=== PATIENT | male | born 1965 | race Caucasian/White ===

== ENCOUNTER 2017-01-10 07:40 | Day surgery (SDC) | payer BC ==
[~2017-01-10] VITALS: Ht 180.3 cm; Wt 108.3 kg
[~2017-01-10 07:40] MED LIST: ASPI-110 PO; DILT-64 PO; MULTCAP14 PO; TUMS500C CHEW; VITA500C3 CHEW
[2017-01-10] MEDS ORDERED: INSULIN HUMAN REGULAR 1,000 UNITS/10 ML VIAL SQ PRN (08:15)
[2017-01-10] MEDS ORDERED: LACTATED RINGER'S 1000 ML IV PRN (08:15)
[2017-01-10] MEDS ORDERED: METOPROLOL TARTRATE 25 MG TAB PO PRN (08:15)
[2017-01-10] MEDS ORDERED: SODIUM CHLORID 0.9% 500 ML IV PRN (08:15)
[2017-01-10] MEDS ORDERED: POVIDONE IODINE 5% (ANTISEPSIS KIT) 4 APPLICATIONS EACH NARE PRN (08:15)
[2017-01-10] MEDS ORDERED: CHLORHEXIDINE GLUCONATE 2 % 1 PACK (2 CLOTHS) TOPICAL PRN (08:15)
[2017-01-10 08:48] VITALS: BP 102/72; PULSE 85; RESP 20; TEMP 98.9; O2SAT 97
[2017-01-10] MEDS ORDERED: BUPIVACAINE/EPINEPHRINE 0.5% 50 ML VIAL ONE (09:15)
[2017-01-10 09:27] LABS: ALT (GPT) 29 U/L (12-78); ANION GAP 8 MEQ/L (5-15); AST (GOT) 17 U/L (15-37); BICARBONATE 23.6 MEQ/L (21.0-32.0); BLOOD UREA NITROGEN 18 MG/DL (7-18); CHLORIDE 109 MEQ/L (98-107); GLOMERULAR FILTRATION RATE 68 ML/MIN (>89); SODIUM (NA) 141 MEQ/L (136-145)
[2017-01-10 09:30] LABS: ALKALINE PHOSPHATASE 65 U/L (45-117); TOTAL BILIRUBIN ADULT 0.3 MG/DL (0.2-1.0)
[2017-01-10] MEDS ORDERED: Post-op Orders (for Pharmacy) MISC XX ONE (10:15)
[2017-01-10] MEDS ORDERED: SODIUM CHLORIDE 0.9% FLUSH 10 ML FLUSH IV FLUSH PRN (10:15)
[2017-01-10] MEDS ORDERED: NALOXONE HCL 0.4 MG/ML AMP IV PRN (10:15)
[2017-01-10] MEDS ORDERED: PANTOPRAZOLE SOD 40 MG DELAYED RELEASE TAB PO SCH (10:15)
[2017-01-10] MEDS ORDERED: ONDANSETRON HCL 4 MG/2 ML VIAL IV PRN (10:15)
[2017-01-10] MEDS ORDERED: DILTIAZEM-CD 180 MG CAP ER PO SCH ×2 (11:00→12:00)
--- NOTE | 2017-01-10 11:22 | MH ---
cc: TREVOR SARAVIA MD DATE OF ADMISSION 01/10/2017 ADMITTING PHYSICIAN Trevor Saravia MD ADMISSION DIAGNOSIS Acute calculous cholecystitis, chronic calculous cholecystitis/cholelithiasis, uncontrolled atrial fibrillation. HISTORY OF PRESENT DISEASE This 51-year-old male was referred to me from another physician and was diagnosed in [place] with biliary colic, episode of acute cholecystitis. Workup revealed a large 2.5 cm stone lodged in the neck of the gallbladder. The patient recovered from this and underwent workup and has now scheduled a laparoscopic cholecystectomy. In the preop area, the patient is noted to have uncontrolled atrial fibrillation with heart rate about 110 and therefore surgery was cancelled until this was worked up. The patient states that he goes in and out of atrial fibrillation. He has seen a manager documentation in 2005 and was placed on Cardizem, but does not take it regularly. He does not know if he was ever on any anticoagulants, but does not take any now anyway. PAST MEDICAL HISTORY Atrial fibrillation off and on, the patient is not very good historian and is fairly noncompliant with his care. PAST SURGICAL HISTORY Negative MEDICATIONS 1. Cardizem 240 daily 2. Aspirin SOCIAL HISTORY Patient is a social drinker. PHYSICAL EXAM This is a 51-year-old male, somewhat overweight. HEAD, EYES, EARS, NOSE, AND THROAT: Normocephalic. No trauma to the head. Pupils equally reactive. Extraocular muscles intact. NECK: Supple. Bilateral carotid pulses. No bruits. CHEST: Clear bilateral breath sounds. HEART: Irregular rhythm between 90-110 a minute, atrial fibrillation. The patient appears to be slightly pale. ABDOMEN: Soft. Active bowel sounds. No rebound or guarding. No masses. No scars. EXTREMITIES: Grossly within normal limits with good proximal and distal pulses. No signs of vascular deficit. BACK: Normal. NEUROLOGIC: The patient is fully intact. IMPRESSION A 51-year-old male scheduled for elective laparoscopic cholecystectomy. Nonetheless now has uncontrolled atrial fibrillation. I am not sure if the patient is going in out of A. fib, has not been worked up. The patient cannot go to the OR like this. He is going to be admitted now, worked up by cardiology and we will go from there. The other option is to discharge the patient and have this done on an outpatient basis. Either way, the patient's surgery has been postponed for clearly medical reasons. Trevor CHAMPION /11:00 AM /11:11 AM
--- NOTE | 2017-01-10 12:41 | PD.CAR.PN ---
CVT Progress Note Subjective/Hospital Course: Patient wishes to complete the workup as an outpatient Will DC today Objective: Vital Signs Date Time Temp Pulse Resp B/P Pulse Ox O2 Delivery O2 Flow Rate FiO2 01/10/17 08:48 98.9 85 20 102/72 97 Labs: Laboratory Tests Test 01/10/17 08:45 Sodium Level 141 MEQ/L (136-145) Potassium Level 4.0 MEQ/L (3.5-5.1) Chloride Level 109 MEQ/L (98-107) Carbon Dioxide Level 23.6 MEQ/L (21.0-32.0) Anion Gap 8 MEQ/L (5-15) Blood Urea Nitrogen 18 MG/DL (7-18) Creatinine 1.14 MG/DL (0.60-1.30) Estimat Glomerular Filtration 68 ML/MIN (>89) Rate Random Glucose 111 MG/DL (74-106) Calcium Level 8.6 MG/DL (8.5-10.1) Total Bilirubin 0.3 MG/DL (0.2-1.0) Aspartate Amino Transf 17 U/L (15-37) (AST/SGOT) Alanine Aminotransferase 29 U/L (12-78) (ALT/SGPT) Alkaline Phosphatase 65 U/L (45-117) Total Protein 7.4 GM/DL (6.4-8.2) Albumin 3.7 GM/DL (3.4-5.0) Result Diagram: 01/10/17 0845 Trevor Blake MD January 10, 2017 12:41
--- NOTE | 2017-01-10 13:46 | EKG ---
Date Performed: 01/10/2017 Time Performed: 08:14:19 PTAGE: 51 years EKG: ATRIAL FIBRILLATION POSSIBLE INFERIOR MYOCARDIAL INFARCTION , PROBABLY OLD ABNORMAL RHYTHM ECG NO PREVIOUS TRACING DOCTOR: Tristen Yañez Interpretating Date/Time 01/10/2017 13:42:50
[2017-01-10] MEDS ORDERED: SODIUM CHLORIDE 0.9% FLUSH 10 ML FLUSH IV FLUSH SCH (21:00)
[2017-02-14] MEDS ORDERED: NALOXONE HCL 0.4 MG/ML AMP IV PRN (14:45)
[2017-02-14] MEDS ORDERED: oxyCODONE/ACETAMINOPHEN 5 MG/325 MG TAB PO PRN (14:45)
[2017-02-14] MEDS ORDERED: Post-op Orders (for Pharmacy) MISC XX ONE (14:45)
[2017-02-14] MEDS ORDERED: DILTIAZEM-CD 240 MG CAP ER PO SCH (14:45)
[2017-02-14] MEDS ORDERED: MORPHINE SULFATE 4 MG/ML INJ IV PRN (14:45)
[2017-02-14] MEDS ORDERED: SODIUM CHLORIDE 0.9% FLUSH 10 ML FLUSH IV FLUSH PRN (14:45)
[2017-02-14] MEDS ORDERED: ONDANSETRON HCL 4 MG/2 ML VIAL IV PRN (14:45)
[2017-02-14] MEDS ORDERED: PANTOPRAZOLE SOD 40 MG DELAYED RELEASE TAB PO SCH (15:00)
[2017-02-14] MEDS ORDERED: SODIUM CHLOR 0.9% 1000 ML INJ 1,000 ML IV SCH (15:00)
[2017-02-14] MEDS ORDERED: SODIUM CHLORIDE 0.9% FLUSH 10 ML FLUSH IV FLUSH SCH (21:00)
== END 2017-01-10 12:43 | disposition home or self-care (01) ==
LOC: HSDC 07:40 → UNDOADMIN 10:07 → HSDI 10:07 → UNDODISIN 12:43 → HSDC 12:43
PROVIDERS: ATTEND Surgery
DX: K81.0 Acute cholecystitis (principal); Z53.09 Procedure and treatment not carried out because of other contraindication; I48.91 Unspecified atrial fibrillation
CPT/HCPCS: 80053; 93005; 99211; G0463

== ENCOUNTER 2017-02-14 08:27 | Observation (INO) | payer BC ==
[~2017-02-14] VITALS: Ht 180.3 cm; Wt 106.4 kg
[2017-02-14] MEDS ORDERED: POVIDONE IODINE 5% (ANTISEPSIS KIT) 4 APPLICATIONS EACH NARE PRN (08:45)
[2017-02-14] MEDS ORDERED: METOPROLOL TARTRATE 25 MG TAB PO PRN (08:45)
[2017-02-14] MEDS ORDERED: SODIUM CHLORID 0.9% 500 ML IV PRN (08:45)
[2017-02-14] MEDS ORDERED: CHLORHEXIDINE GLUCONATE 2 % 1 PACK (2 CLOTHS) TOPICAL PRN (08:45)
[2017-02-14] MEDS ORDERED: INSULIN HUMAN REGULAR 1,000 UNITS/10 ML VIAL SQ PRN (08:45)
[2017-02-14] MEDS ORDERED: LACTATED RINGER'S 1000 ML IV PRN (08:45)
[2017-02-14] MEDS ORDERED: BUPIVACAINE/EPINEPHRINE 0.5% PF 30 ML VIAL ONE (09:01)
[2017-02-14 09:17] VITALS: BP 114/74; PULSE 72; RESP 18; TEMP 98.7; O2SAT 94
[2017-02-14 09:50] LABS: AUTOMATED NEUTROPHIL # 4.4 TH/MM3 (1.8-7.7); BASOPHIL % 0.6 % (0.0-2.0); EOSINOPHIL # 0.2 TH/MM3 (0-0.4); HEMATOCRIT 41.4 % (39.0-51.0); HEMO FLAGS DIFF FINAL; LYMPH % 26.9 % (9.0-44.0); LYMPHOCYTE # 1.9 TH/MM3 (1.0-4.8); MEAN CELL VOLUME 87.7 FL (80.0-100.0); MEAN CORPUSCULAR HEMOGLOBIN 29.4 PG (27.0-34.0); MEAN CORPUSCULAR HGB CONC 33.6 % (32.0-36.0); MONO % 7.4 % (0.0-8.0); NEUT % 62.1 % (16.0-70.0); PLATELET COUNT 256 TH/MM3 (150-450); RED BLOOD COUNT 4.72 MIL/MM3 (4.50-5.90); RED CELL DISTRIBUTION WIDTH 12.5 % (11.6-17.2); WHITE BLOOD COUNT 7.1 TH/MM3 (4.0-11.0)
[2017-02-14 09:53] LABS: PROTHROMBIN TIME - PATIENT 10.8 SEC (9.8-11.6)
[2017-02-14] MEDS ORDERED: ceFAZolin 2 GM PREMIX 50 ML ONE (10:00)
[2017-02-14] MEDS ORDERED: ceFAZolin INJ 1,000 MG VIAL ONE (10:00)
[2017-02-14 10:06] LABS: ALT (GPT) 128 U/L (12-78); ANION GAP 7 MEQ/L (5-15); AST (GOT) 370 U/L (15-37); BICARBONATE 25.7 MEQ/L (21.0-32.0); BLOOD UREA NITROGEN 17 MG/DL (7-18); CHLORIDE 108 MEQ/L (98-107); GLOMERULAR FILTRATION RATE 77 ML/MIN (>89); POTASSIUM 4.1 MEQ/L (3.5-5.1); SODIUM (NA) 141 MEQ/L (136-145)
[2017-02-14] MEDS ORDERED: MIDAZOLAM HCL 2 MG/2 ML VIAL ONE (10:06)
[2017-02-14] MEDS ORDERED: ACETAMINOPHEN 1000 MG/100 ML VIAL IV ONE (10:06)
[2017-02-14] MEDS ORDERED: FAMOTIDINE 20 MG/2 ML VIAL ONE (10:06)
[2017-02-14] MEDS ORDERED: fentaNYL CITRATE 250 MCG/5 ML AMP ONE (10:07)
[2017-02-14] MEDS ORDERED: SUGAMMADEX SODIUM 200 MG/2 ML VIAL IV PUSH ONE ×2 (10:07)
[2017-02-14 10:09] LABS: ALKALINE PHOSPHATASE 64 U/L (45-117); TOTAL BILIRUBIN ADULT 0.4 MG/DL (0.2-1.0)
[2017-02-14] MEDS ORDERED: ceFAZolin 2 GM PREMIX 50 ML IV ONE (11:15)
[2017-02-14] MEDS ORDERED: PROPOFOL 200 MG/20 ML AMP IV ONE (12:00)
[2017-02-14] MEDS ORDERED: NEOSTIGMINE 3 MG/3 ML SYR IV ONE (12:00)
[2017-02-14] MEDS ORDERED: ONDANSETRON HCL 4 MG/2 ML VIAL IV PUSH ONE (12:00)
[2017-02-14] MEDS ORDERED: MORPHINE SULFATE 4 MG/ML INJ ONE (13:00)
[2017-02-14] MEDS ORDERED: DO NOT ADM ANY ANTICOAGULANT DRUGS PRN (13:15)
[2017-02-14] MEDS ORDERED: *morphine SULFATE 8 MG/ML PERIprocedure ONLY ONE (13:17)
[2017-02-14] MEDS ORDERED: PERC5TAB12 PO (14:46)
[2017-02-14] MEDS ORDERED: SODIUM CHLOR 0.9% 1000 ML INJ 1,000 ML IV SCH (15:15)
[2017-02-14] MEDS ORDERED: MORPHINE SULFATE 4 MG/ML INJ IV PRN (15:15)
[2017-02-14] MEDS ORDERED: oxyCODONE/ACETAMINOPHEN 5 MG/325 MG TAB PO PRN (15:15)
[2017-02-14] MEDS ORDERED: NALOXONE HCL 0.4 MG/ML AMP IV PRN (15:15)
[2017-02-14 16:00] VITALS: BP 119/60; PULSE 65; RESP 16; TEMP 96.7; O2SAT 93
[2017-02-14] MEDS ORDERED: ONDANSETRON HCL 4 MG/2 ML VIAL IV PUSH PRN (16:00)
[2017-02-14] MEDS ORDERED: DOCUSATE SODIUM 100 MG CAP PO SCH (21:00)
[2017-02-15] MEDS ORDERED: PANTOPRAZOLE SOD 40 MG DELAYED RELEASE TAB PO SCH (09:00)
[2017-02-15] MEDS ORDERED: DILTIAZEM-CD 240 MG CAP ER PO SCH (09:00)
--- NOTE | 2017-02-15 13:26 | MP ---
cc: AMINTA SARAVIA MD DATE OF SURGERY 02/14/2017 PREOPERATIVE DIAGNOSIS Chronic calculous cholecystitis, cholelithiasis abdominal pain. POSTOPERATIVE DIAGNOSIS Chronic calculous cholecystitis, cholelithiasis abdominal pain. PROCEDURE Laparoscopic cholecystectomy SURGEON Aminta Saravia MD ANESTHESIA General ESTIMATED BLOOD LOSS 20 cc PROCEDURE The patient prepped and draped in the usual fashion. A supraumbilical small incision made, deepened down into the peritoneal cavity and the Adrien cannula placed. The abdomen insufflated with CO2. The patient placed in reverse Trendelenburg with a left tilt. A 0 degrees camera is inserted and under direct vision, the subxiphoid and two right upper quadrant ports are placed and then the abdomen visualized in the quadrant. The patient has a very large omentum, but otherwise everything appears normal. The liver is fairly large. The gallbladder is covered with omentum and these adhesions were taken gradually down by blunt dissection. The gallbladder is now grasped with alligator clamps, elevated. The cystic duct and cystic artery were carefully dissected with [place] dissectors, triply ligated Liga clips, divided and gallbladder taken off the liver bed with spatula, cautery instrument delivered through the subumbilical incision using EndoCatch bag. The area irrigated with saline. Meticulous hemostasis obtained. The instruments withdrawn. The incisions closed with 0 Vicryl for and 4-0 subcuticular Monocryl. The patient taken out of the operating room to the Recovery Room in stable condition. Aminta HAWKINS/PHILIPPE /2:48 PM /1:20 PM CHUY
== END 2017-02-14 18:25 | disposition home or self-care (01) ==
LOC: HSDC 08:27 → UNDOADMOB 14:53 → N07A 14:53 → UNDODISOB 18:25
PROVIDERS: ADMIT Surgery; ATTEND Surgery
DX: K80.10 Calculus of gallbladder with chronic cholecystitis without obstruction (principal); K66.0 Peritoneal adhesions (postprocedural) (postinfection); I10 Essential (primary) hypertension; I48.91 Unspecified atrial fibrillation; K21.9 Gastro-esophageal reflux disease without esophagitis; F17.200 Nicotine dependence, unspecified, uncomplicated; Z88.1 Allergy status to other antibiotic agents
CPT/HCPCS: 47562; 80053; 85025; 85610; 88304; G0378; J0131; J0690; J2250; J2270; J2405; J2710; J3010; J7030; J7120